=== PATIENT | female | born 1940 | race Caucasian/White ===

== ENCOUNTER 2023-06-03 18:10 | Emergency (ER) | payer MEDICARE ==
[~2023-06-03] VITALS: Wt 61.8 kg
[2023-06-03] MEDS ORDERED: RAMELTEON8 MG PO (18:39)
[2023-06-03] MEDS ORDERED: BISACODYL10 M1 RC (18:40)
[2023-06-03] MEDS ORDERED: VISTARIL50 M1 PO (18:40)
[2023-06-03] MEDS ORDERED: RIVASTIGMINE TAR6 MG PO (18:41)
[2023-06-03] MEDS ORDERED: MEMANTINE HCL10 MG PO (18:41)
[2023-06-03] MEDS ORDERED: CYMBALTA60 M1 PO (18:41)
[2023-06-03] MEDS ORDERED: TIZANIDINE2 MG PO (18:41)
[2023-06-03] MEDS ORDERED: RISPERDAL 1M1 MG/TAB PO (18:42)
[2023-06-03 18:44] LABS: ALBUMIN 3.1 g/dL (3.4-4.8)
[2023-06-03 18:45] LABS: POTASSIUM 3.9 mmol/L (3.5-5.1); SODIUM 136 mmol/L (136-145)
[2023-06-03 18:47] LABS: GLUCOSE 150 mg/dL (65-105); TOTAL PROTEIN 6.5 g/dL (6.2-8.1)
[2023-06-03 18:49] LABS: TOTAL BILIRUBIN 0.7 mg/dL (0.2-1.2)
[2023-06-03 18:51] LABS: CARBON DIOXIDE 17 mmol/L (23-31)
[2023-06-03 18:52] LABS: AST-SGOT 16 U/L (5-34)
[2023-06-03 18:53] LABS: ALT/SGPT 13 U/L (0-55)
[2023-06-03 18:53] LABS: HEMATOCRIT 30.8 % (37.0-47.0); HEMOGLOBIN 9.8 g/dL (12.5-16.0); MEAN CELL VOLUME 87 fl (78-100); MEAN CORPUSCULAR HEMOGLOBIN 28 pg (27-31); MEAN CORPUSCULAR HGB CONC 32 g/dL (33-37); MEAN PLATELET VOLUME 10.3 fl (7.4-10.4); PLATELET COUNT 201 K/mm3 (130-400); RED BLOOD COUNT 3.56 M/mm3 (4.10-5.30); WHITE BLOOD COUNT 13.1 K/mm3 (4.8-10.8)
[2023-06-03 18:59] LABS: TROPONIN-I < 0.030 ng/mL (<0.030)
[2023-06-03 19:25] LABS: LYMPHOCYTE 3 % (20-51); MONOCYTE 2 % (3-10); NEUTROPHILS 95 % (42-75)
[2023-06-03 19:34] LABS: URINE APPEARANCE HAZY; URINE BILIRUBIN 1+ (NEGATIVE); URINE BLOOD 50 ery/uL (NEGATIVE); URINE COLOR DARK YELLOW; URINE GLUCOSE NEGATIVE (NEGATIVE); URINE KETONE TRACE (NEGATIVE); URINE LEUKOCYTE ESTERASE NEGATIVE (NEGATIVE); URINE NITRATE NEGATIVE (NEGATIVE); URINE PROTEIN(semi-quant) 1+ (NEGATIVE); URINE UROBILINOGEN NORMAL (NORMAL)
[2023-06-03 19:35] LABS: URINE MUCUS PRESENT (NOT PRESENT)
[2023-06-03] MEDS ORDERED: ARTIFICIAL TEARS OU (19:59)
[2023-06-03] MEDS ORDERED: GOOD NEIGHBOR100 M2 PO (20:02)
[2023-06-03] MEDS ORDERED: BIOFREEZE89 ML TP (20:03)
[2023-06-03] MEDS ORDERED: BIOTENE MOIST44.3 ML (20:04)
[2023-06-03 21:12] LABS: PROTHROMBIN TIME 11.7 SECONDS (9.0-12.0)
[2023-06-03 21:47] VITALS: BP 112/65
== END 2023-06-03 21:47 | disposition short-term general hospital (02) ==
LOC: ED 18:10
PROVIDERS: Family Medicine; Nurse Practitioner
DX: R09.02 Hypoxemia (principal); I48.91 Unspecified atrial fibrillation; I26.99 Other pulmonary embolism without acute cor pulmonale; J90 Pleural effusion, not elsewhere classified; R10.11 Right upper quadrant pain; Z20.822 Contact with and (suspected) exposure to COVID-19
CPT/HCPCS: J0696; J1644; J1885; J7030; Q9967